=== PATIENT | female | born 1945 | race Caucasian/White ===

== ENCOUNTER → 2018-05-09 09:56 | Outpatient (CLI) | payer MEDICARE, OTHER, SELFPAY ==
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
--- NOTE | 2018-05-09 10:00 | MM_ITS ---
MM Dig screening mamm BI w/CAD ORDERING PHYSICIAN : Jakob Barrios MD PATIENT AGE: 72 years GENDER: Female COMPARISON: Baseline study. No previous mammogram. INDICATION: Routine: SCREENING baseline mammogram. No hormones. No new complaints. Family history. Mother with breast cancer age 93. TECHNIQUE: Standard CC and MLO images were obtained. R2 CAD reviewed. FINDINGS: Lower density breast with moderate generalized fatty replacement. Minimal residual fibroglandular elements most evident at the immediate retroareolar region. No prior studies available for comparison. No dominant or suspicious mass. No suspicious calcifications.. Minor parenchymal elements at the retroareolar region but no focal area of concern. I would recommended encourage follow-up in one year to confirm established stable baseline character. RIGHT BREAST: LEFT BREAST:No suspicious areas of concern.. Follow-up in one year adequate. There are some a few small low-density oil cysts. Low-density centrally within these support such. These are more evident on the left than right.. Can be followed. IMPRESSION: 1. Baseline mammogram with no previous for comparison No suspicious areas. Slightly nodular character of the fibroglandular pattern but no areas of significant concern Would recommend encourage Bilateral follow-up in one year to confirm stable baseline character . BI-RADS Category: 2 Benign Finding(s) RECOMMENDED FOLLOW-UP: 1YR 1 YEAR FOLLOW-UP (A letter has been sent to the patient regarding results of the study.)
== END ==
PROVIDERS: PCP Internal Medicine Adolescent Medicine; Visit Provider Internal Medicine Adolescent Medicine
DX: Z12.31 Encounter for screening mammogram for malignant neoplasm of breast (principal); Z13.820 Encounter for screening for osteoporosis; Z78.0 Asymptomatic menopausal state
CPT/HCPCS: 77067; 77080

== ENCOUNTER → 2019-07-28 15:58 | Outpatient (CLI) | payer MEDICARE, OTHER, SELFPAY ==
[2019-07-28 16:43] LABS: Basophils # 0.1 K/mm3 (0-0.2); Basophils % 1.3 % (0.1-2.0); Eosinophils # 0.5 K/mm3 (0.0-0.4); Eosinophils % 7.3 % (0.1-12.0); Hemoglobin 15.4 g/dL (12.2-16.2); Lymphocytes # 2.4 K/mm3 (0.7-4.5); Lymphocytes % 32.7 % (10-50); Mean Corpuscular HGB Conc 34.9 g/dL (31.8-35.4); Mean Corpuscular Hemoglobin 31.4 pg (27.0-31.2); Mean Platelet Volume 7.7 fl (7.4-10.4); Monocytes # 0.3 K/mm3 (0.1-1.0); Monocytes % 4.6 % (1.7-9.3); Neutrophils # 3.9 K/mm3 (1.8-7.8); Neutrophils % 54.1 % (37.0-80.0); Platelet Count 196 K/mm3 (142-424); Red Blood Count 4.89 M/mm3 (4.20-5.40); Red Cell Distribution Width 13.7 % (11.5-17.5); White Blood Count 7.2 K/mm3 (4.8-10.8)
[2019-07-28 17:06] LABS: Chloride 105 mmol/L (98-107); Potassium 4.3 mmoL/L (3.5-5.1); Sodium 141 mmol/L (136-145)
[2019-07-28 17:08] LABS: Alanine Aminotransferase 11 U/L (12-78); Aspartate Amino Transferase 22 U/L (14-36); Blood Urea Nitrogen 12 mg/dl (7-17); Estimated Glomerular Filt Rate 70 ml/min (>60); GFR (African American) 85 ML/MIN (>60)
[2019-07-28 17:09] LABS: Albumin Level 4.3 g/dl (3.5-5.0); Albumin/Globulin Ratio 1.4 (1.1-1.8); Alkaline Phosphatase 92 U/L (38-126); Anion Gap 9.3 mEq/L (5-15); Bilirubin,Total 0.8 mg/dl (0.2-1.3); Carbon Dioxide 31 mmol/L (22.0-30.0); Chol/HDL Ratio 3.2 (1-3.5); Cholesterol 184 mg/dl (140-200); Glucose 87 mg/dl (74-100); HDL Cholesterol 57 mg/dl (40-60); Total Protein,Serum 7.3 g/dl (6.3-8.2); Triglycerides 186 mg/dl (30-150); VLDL Cholesterol 37 mg/dL (0-40)
[2019-07-28 17:20] LABS: Direct LDL Cholesterol 101.57 mg/dL (100-129)
[2019-07-28 17:39] LABS: Thyroid Stimulating Hormone 0.44 uIU/mL (0.465-4.68)
== END ==
PROVIDERS: PCP Internal Medicine Adolescent Medicine; Visit Provider Nurse Practitioner Family
DX: Z00.00 Encounter for general adult medical examination without abnormal findings (principal); R00.2 Palpitations; R42 Dizziness and giddiness; E78.5 Hyperlipidemia, unspecified
CPT/HCPCS: 36415; 80053; 80061; 84443; 85025; 93270

== ENCOUNTER → 2019-08-16 08:38 | Outpatient (CLI) | payer MEDICARE, OTHER, SELFPAY ==
--- NOTE | 2019-08-16 | CA_ITS ---
APPROVED REPORT EXAM: Comprehensive 2D, Doppler, and color-flow Echocardiogram Moving Worker: Yoli Cordova CRT Ht: 5 ft 2 in Wt: 132lbs BSA: 1.60 BP: 140/76 mmHg Indications: PALPITATIONS, SOB, HLD 2D Dimensions LVOT 1.90 cm (M/F) 1.5-2.5 M-Mode Dimensions RVDd 2.50 cm (0.9-2.6) LVDd 4.43 cm (3.5-5.7) LVDs 3.25 cm (3.5-5.7) IVSd 1.36 cm (0.6-1.1) PWd 0.86 cm (0.6-1.1) EF (Teich) 52.30% FS 26.60% EDV (Teich) 89.10 mL ESV (Teich) 42.50 mL LV Diastology E/A Ratio 0.65 Mitral Valve MV A Velocity 89.00 (40-130 cm/s) Left Ventricle Left atrium is mildly enlarged, left ventricle is normal size, visually estimated ejection fraction 55% with no regional wall motion abnormality, endocardial surfaces are poorly visualized. Grade 1 diastolic dysfunction seen without tissue Doppler evidence of raise left atrial pressure. Right Ventricle Right atrium and right ventricular normal size and contractility. Aortic Valve Aortic valve is thickened and calcified leaflet chordae display good mobility, there is no aortic stenosis, there is mild aortic insufficiency. Mitral Valve Mitral valve is minimally thickened, there is mild mitral regurgitation. Tricuspid Valve Tricuspid valve is grossly normal, there is mild tricuspid regurgitation, tricuspid regurgitation jet velocity is inadequate for calculation of the right ventricular systolic pressure. Pulmonic Valve Pulmonic valve is poorly visualized. Great Vessels Aortic root is normal size. Pericardium No significant pericardial effusion noted. Conclusion 1. Mildly enlarged left atrium, normal left ventricular size, there is no concentric left ventricular hypertrophy, visually estimated ejection fraction 55% with no regional wall motion abnormality, grade 1 diastolic dysfunction seen without tissue Doppler evidence of raise left atrial pressure. 2. Mild aortic, mild mitral and tricuspid regurgitation. 3. No significant pericardial effusion noted. Electronically signed by : Alonso Marie, 08/17/2019 13:32:17
== END ==
PROVIDERS: PCP Internal Medicine Adolescent Medicine; Visit Provider Nurse Practitioner Family
DX: I47.1 Supraventricular tachycardia (principal)
CPT/HCPCS: 93306

== ENCOUNTER → 2019-08-22 10:52 | Outpatient (CLI) | payer MEDICARE, OTHER, SELFPAY ==
[2019-08-22 14:14] LABS: Thyroid Stimulating Hormone 1.58 uIU/mL (0.465-4.68)
== END ==
PROVIDERS: PCP Nurse Practitioner Family; Visit Provider Internal Medicine Adolescent Medicine
DX: R00.2 Palpitations (principal)
CPT/HCPCS: 36415; 84443

== ENCOUNTER → 2020-02-19 13:37 | Outpatient (CLI) | payer MEDICARE, OTHER, SELFPAY ==
--- NOTE | 2020-02-19 13:49 | XR_ITS ---
PROCEDURE: XR CHEST PORTABLE CLINICAL HISTORY: COVID OUTPATIENT COMPARISON: CR CXR CHEST(2 VIEWS-NOT PORTABLE) from 04/06/[address] [facility] [address] CHEST W/O CONTRAST from 04/07/2013 CR CXR CHEST(2 VIEWS-NOT PORTABLE) from 06/26/2014 CR CXR CHEST(2 VIEWS-NOT PORTABLE) from 01/22/2016 FINDINGS: The cardiomediastinal silhouette and pulmonary vascularity are within normal limits tortuosity. The lung bass are fairly well expanded and appear clear of infiltrate. There is no pleural fluid. There are calcified right hilar nodes. IMPRESSION: No acute findings. Dictated by: Dr. Yonny Fernandes MD 02/19/2020 14:22 Dr. Yonny Fernandes MD in [place] 02/19/2020 14:22
[2020-02-19 15:25] LABS: Adenovirus,PCR Not Detected (NotDetected); Bordetella Pertussis Not Detected (NotDetected); Chlamydophila Pneumoniae, PCR Not Detected (NotDetected); Coronavirus 19, PCR Not Detected (NotDetected); Coronavirus 229E Not Detected (NotDetected); Coronavirus NL63 Not Detected (NotDetected); Coronavirus OC43 Not Detected (NotDetected); Coronovirus HKU1,PCR Not Detected (NotDetected); Human Metapneumovirus Not Detected (NotDetected); Influenza A, PCR Not Detected (NotDetected); Influenza AH1, 2009 Not Detected (NotDetected); Influenza AH1, PCR Not Detected (NotDetected); Influenza AH3,PCR Not Detected (NotDetected); Influenza B, PCR Not Detected (NotDetected); Mycoplasma Pneumoniae, PCR Not Detected (NotDetected); Parainfluenza 1, PCR Not Detected (NotDetected); Parainfluenza 2, PCR Not Detected (NotDetected); Parainfluenza 3, PCR Not Detected (NotDetected); Parainfluenza 4, PCR Not Detected (NotDetected); Respiratory Syncytial Virus Not Detected (NotDetected); Rhinovirus/Enterovirus Not Detected (NotDetected)
== END ==
PROVIDERS: PCP Internal Medicine Adolescent Medicine; Visit Provider Internal Medicine Adolescent Medicine
DX: Z03.818 Encounter for observation for suspected exposure to other biological agents ruled out (principal); R05 Cough
CPT/HCPCS: 71045; 87581; 87633; 87798

== ENCOUNTER → 2020-07-16 09:40 | Outpatient (POV) | payer MEDICARE, OTHER, SELFPAY | PROVIDERS: Visit Provider Dermatology | DX: Z00.00 Encounter for general adult medical examination without abnormal findings (principal) ==

== ENCOUNTER → 2021-08-12 10:47 | Outpatient (CLI) | payer MEDICARE, OTHER, SELFPAY ==
--- NOTE | 2021-08-12 10:48 | CA_ITS ---
APPROVED REPORT EXAM: Comprehensive 2D, Doppler, and color-flow Echocardiogram Hotel Manager: Liliam Jimenez RVT Ht: 5 ft 2 in Wt: 124lbs BSA: 1.56 BP: 148/82 mmHg Indications: SYNCOPE,BRADYCARDIA,SOA,EX SMOKER,HLD 2D Dimensions LVOT 1.99 cm (M/F) 1.5-2.5 LA Volume 23.80 mL LA Volume Index 15.25 mL/m2 (M/F) 16-34 M-Mode Dimensions RVDd 2.75 cm (0.9-2.6) LA Diam 3.38 cm (1.9-4.0) LVDd 5.40 cm (3.5-5.7) Ao Diam 3.31 cm (2.0-3.7) LVDs 3.47 cm (3.5-5.7) IVSd 0.29 cm (0.6-1.1) PWd 0.64 cm (0.6-1.1) EF (Teich) 64.80% FS 35.70% EDV (Teich) 141.30 mL TAPSE 2.17 (<1.7) ESV (Teich) 49.80 mL LV Diastology E Decel Time 290.00 (160-240 msec) E/A Ratio 0.7 MED E' 8.00 (< 7 cm/sec) E'/MED E' Ratio 6.20 (>14) LAT E' 15.30 (<10 cm/sec) E/LAT E' Ratio 3.24 (>14) Aortic Valve AI PHT 1565.00 ms AO Peak GR. 5.50 mmHg Mitral Valve MV E Max Bam. 50.00 (40-130 cm/s) MV A Velocity 68.00 (40-130 cm/s) E/A Ratio 0.73 MV Decel. Time 290.00 (160-240 ms) MV PHT 85.00 ms Pulmonary Valve PV Peak Velocity 50.00 (50-150 cm/s) Tricuspid Valve TR P. Velocity 281.00 cm/s RAP Estimate 10.00 mmHg RVSP 41.50 mmHg Left Ventricle Left atrium is mildly enlarged, left ventricle is normal size, mild concentric left ventricular hypertrophy, estimated ejection fraction 55% with no regional wall motion abnormality, grade 1 diastolic dysfunction seen without tissue Doppler evidence of raise left atrial pressure. Right Ventricle Right atrium and right ventricle are mildly enlarged with normal contractility. Aortic Valve Aortic valve is minimally thickened and calcified with mild aortic insufficiency, there is no aortic stenosis. Mitral Valve Mitral valve grossly normal, there is mild mitral regurgitation. Tricuspid Valve Tricuspid grossly normal, there is mild tricuspid regurgitation, calculated right ventricular systolic pressure 39 mmHg. Pulmonic Valve Pulmonic valve is poorly visualized. Great Vessels Aortic root is normal size. Inferior vena cava is mildly dilated with normal inspiratory collapse. Pericardium No significant pericardial effusion noted. Conclusion 1. Mild biatrial enlargement, normal left ventricular size, mild concentric left ventricular hypertrophy, estimated ejection fraction 55% with no regional wall motion abnormality, grade 1 diastolic dysfunction seen without tissue Doppler evidence of raise left atrial pressure. 2. Mildly enlarged right ventricle with normal contractility. 3. Mild aortic, mild mitral and tricuspid regurgitation, calculated right ventricular systolic pressure 39 mmHg. 4. Inferior vena cava is mildly dilated with normal inspiratory collapse. 5. No significant pericardial effusion noted. Electronically signed by : Alonso Marie MD 08/12/2021 19:47:36
[2021-08-12 12:09] LABS: Basophils # 0.1 K/mm3 (0-0.2); Basophils % 2.5 % (0.1-2.0); Eosinophils # 0.2 K/mm3 (0.0-0.4); Eosinophils % 4.2 % (0.1-12.0); Hematocrit 45.1 % (37.0-47.0); Hemoglobin 14.9 g/dL (12.2-16.2); Lymphocytes # 1.7 K/mm3 (0.7-4.5); Mean Corpuscular Hemoglobin 30.9 pg (27.0-31.2); Mean Corpuscular Volume 93.7 fl (81-99); Monocytes # 0.3 K/mm3 (0.1-1.0); Monocytes % 5.2 % (1.7-9.3); Neutrophils # 2.8 K/mm3 (1.8-7.8); Neutrophils % 54.1 % (37.0-80.0); Platelet Count 198 K/mm3 (142-424); Red Blood Count 4.81 M/mm3 (4.20-5.40); Red Cell Distribution Width 12.6 % (11.5-17.5); White Blood Count 5.1 K/mm3 (4.8-10.8)
[2021-08-12 12:29] LABS: Alanine Aminotransferase 18 U/L (12-78); Albumin Level 4.1 g/dl (3.5-5.0); Albumin/Globulin Ratio 1.8 (1.1-1.8); Alkaline Phosphatase 62 U/L (38-126); Aspartate Amino Transferase 21 U/L (14-36); Bilirubin,Total 0.4 mg/dl (0.2-1.3); Blood Urea Nitrogen 14 mg/dl (7-17); Calcium 9.8 mg/dl (8.4-10.2); Carbon Dioxide 32 mmol/L (22.0-30.0); Chloride 103 mmol/L (98-107); Estimated Glomerular Filt Rate 70 ml/min (>60); GFR (African American) 85 ML/MIN (>60); Globulin 2.3 g/dL (1.3-3.2); Glucose 97 mg/dl (74-100); Magnesium 1.9 mg/dl (1.6-2.3); Sodium 139 mmol/L (136-145); Total Protein,Serum 6.4 g/dl (6.3-8.2)
[2021-08-12 12:34] LABS: Digoxin < 0.40 ng/ml (0.2-2.00)
== END ==
PROVIDERS: PCP Internal Medicine Adolescent Medicine; Visit Provider Internal Medicine Adolescent Medicine
DX: R55 Syncope and collapse (principal)
CPT/HCPCS: 36415; 80053; 80162; 83735; 85025; 93306

== ENCOUNTER → 2021-08-21 13:33 | Outpatient (CLI) | payer MEDICARE, OTHER, SELFPAY | PROVIDERS: PCP Internal Medicine Adolescent Medicine; Visit Provider Internal Medicine Adolescent Medicine | DX: R55 Syncope and collapse (principal) | CPT/HCPCS: 93270 ==

== ENCOUNTER 2021-11-16 18:49 | Emergency (ER) | payer MEDICARE, OTHER, SELFPAY ==
[2021-11-16 18:50] VITALS: BP 142/75; PULSE 83; RESP 16; TEMP 36.6; O2SAT 98; BMI 21.5
--- NOTE | 2021-11-16 18:53 | ECG_ITS ---
APPROVED REPORT Exam: Resting ECG HR:84 bpm ECG Measurements Heart Rate 84 AXES UT 206 P 57 QRSd 85 QRS 53 QT 381 T 62 QTc 422 Conclusion SINUS RHYTHM NORMAL ECG UNCONFIRMED REPORT Electronically signed by : Jakob Barrios MD 11/20/2021 16:03:11
--- NOTE | 2021-11-16 19:55 | HMH.EDGENADL ---
Discharge Plan Disposition Patient Disposition: Home, Self-Care Condition: Good Prescriptions Prescriptions: New bisoprolol fumarate 10 mg tablet 10 mg PO DAILY Qty: 14 0RF No Action digoxin 125 mcg (0.125 mg) tablet 125 mcg PO DAILY simvastatin 40 mg tablet 40 mg PO DAILY Advair HFA 115-21 mcg/actuation HFA aerosol inhaler 1 puff IH ONCE aspirin [Adult Low Dose Aspirin] 81 mg tablet,delayed release (DR/EC) 81 mg PO DAILY fluticasone propionate [Flonase Allergy Relief] 50 mcg/actuation spray,suspension 1 spray NS DAILY Rx Instructions: administer into each nostril omeprazole 20 mg capsule,delayed release(DR/EC) 20 mg PO DAILY Label Comments: 1/2 tab daily fexofenadine [Allergy Relief (fexofenadine)] 180 mg tablet 180 mg PO DAILY cholecalciferol (vitamin D3) 25 mcg (1,000 unit) capsule 25 mcg PO DAILY coenzyme Q10 [CoQ-10] 100 mg capsule 100 mg PO DAILY calcium carbonate [Calcium 500] 500 mg calcium (1,250 mg) tablet,chewable 500 mg PO DAILY Referrals Follow up/Referrals: Jakob Barrios MD [Primary Care Provider] - See instructions Nando Solo MD [Staff Physician] - See instructions Activity Restrictions/Add. Instructions Additional Instructions/Restrictions: Bisoprolol as prescribed, start tomorrow. Follow-up with cardiology, call tomorrow to make appointment to be seen this week. You may see Dr. Sigala, or Dr. Solo if you prefer. Return to the emergency room if prolonged palpitations/rapid heartbeat returns. Clinical Impressions Clinical Impression: Atrial fibrillation Discharge ED Provider: Osito Coombs Adult [facility] General Chief complaint: Arrhythmia/Palpitations Stated complaint: palpitations Time Seen by Provider: 11/16/21 19:44 Mode of Arrival: EMS Source of Information: Patient Limitations: No Limitations Description of Symptoms (Recalled from ER Triage Doc. by RN): to ed per squad pt a transfer from [facility] hosp reports pt came to ed for rapid heart rate. pt had a cardiac cath 9 days ago at [facility]. pt was given adenosine with no relief of symptoms. pt was then given 5mg metroprolol after meds HR was 60-80 NSR. pt admits to [facility] with no c/o at present History of Present Illness HPI narrative: The patient is brought by ambulance from [facility] emergency department. She presented there with a cardiac arrhythmia. She says that she has been having palpitations for 2 hours. It was thought initially that she was in SVT and was given adenosine. She had temporary improvement but then heart rates again increased to the 180 range and she became hypotensive. She has recently seen a obstetrician and gynaecologist at [facility] and had a recent heart cath. That cardiology was was contacted and recommended a Cardizem drip, but could not accept the patient for transfer because of lack of beds. The emergency physician then contacted Dr. Solo who recommended a dose of metoprolol. Dr. Solo felt the patient was in atrial fibrillation and not SVT. Following this the patient converted to normal sinus rhythm. She was stable after conversion with temple of normal blood pressure, but the emergency physician felt she should be transferred here for observation. Dr. Bloom, internal medicine on-call, did not want to make the patient a direct admission, wanted her evaluated in the emergency department. She now feels back to normal and would like to be discharged home. The patient has had palpitations for a long time that usually just last a few minutes and resolved with carotid massage. A couple of days ago she had an episode that lasted 2 hours. She had a stress test recently that apparently was of some concern and was sent to [facility] to have a heart cath. She had a heart cath 9 days ago and the heart cath was normal. It was recommended that she have an ablation. She is going to meet with her
[2021-11-16 20:12] VITALS: BP 129/75; PULSE 65; RESP 18; TEMP 36.6; O2SAT 98
== END 2021-11-16 20:35 | disposition home or self-care (01) ==
PROVIDERS: Emergency Provider Emergency Medicine; PCP Internal Medicine Adolescent Medicine
DX: I48.91 Unspecified atrial fibrillation (principal); E78.5 Hyperlipidemia, unspecified; K21.9 Gastro-esophageal reflux disease without esophagitis; I49.9 Cardiac arrhythmia, unspecified
CPT/HCPCS: 93005; 99283

== ENCOUNTER → 2022-02-20 14:00 | Outpatient (CLI) | payer MEDICARE, OTHER, SELFPAY ==
[2022-02-20 18:25] LABS: Basophils # 0.1 K/mm3 (0-0.2); Basophils % 1.4 % (0.1-2.0); Eosinophils # 0.1 K/mm3 (0.0-0.4); Eosinophils % 2.1 % (0.1-12.0); Hematocrit 44.9 % (37.0-47.0); Hemoglobin 15.1 g/dL (12.2-16.2); Lymphocytes % 31.8 % (10-50); Mean Corpuscular HGB Conc 33.6 g/dL (31.8-35.4); Mean Corpuscular Hemoglobin 30.3 pg (27.0-31.2); Mean Corpuscular Volume 90.3 fl (81-99); Mean Platelet Volume 8.5 fl (7.4-10.4); Monocytes # 0.3 K/mm3 (0.1-1.0); Monocytes % 5.3 % (1.7-9.3); Neutrophils # 3.7 K/mm3 (1.8-7.8); Neutrophils % 59.4 % (37.0-80.0); Platelet Count 226 K/mm3 (142-424); Red Blood Count 4.97 M/mm3 (4.20-5.40); Red Cell Distribution Width 12.8 % (11.5-17.5); White Blood Count 6.2 K/mm3 (4.8-10.8)
[2022-02-20 18:32] LABS: Anion Gap 13.5 mEq/L (5-15); Blood Urea Nitrogen 14 mg/dl (7-17); Calcium 9.2 mg/dl (8.4-10.2); Carbon Dioxide 29 mmol/L (22.0-30.0); Chloride 102 mmol/L (98-107); Estimated Glomerular Filt Rate 61 ml/min (>60); GFR (African American) 74 ML/MIN (>60); Glucose 89 mg/dl (74-100); Potassium 4.5 mmoL/L (3.5-5.1); Sodium 140 mmol/L (136-145)
== END ==
PROVIDERS: PCP Nurse Practitioner Family; Visit Provider Nurse Practitioner Family
DX: I48.91 Unspecified atrial fibrillation (principal); Z51.81 Encounter for therapeutic drug level monitoring; Z79.01 Long term (current) use of anticoagulants
CPT/HCPCS: 80048; 85025

== ENCOUNTER 2023-06-22 11:48 | Outpatient (CLI) | payer MEDICARE, OTHER, SELFPAY ==
[2023-06-22 12:12] LABS: Basophils # 0.1 K/mm3 (0-0.2); Basophils % 1.5 % (0.1-2.0); Eosinophils # 0.2 K/mm3 (0.0-0.4); Eosinophils % 4.1 % (0.1-12.0); Hematocrit 46.1 % (37.0-47.0); Hemoglobin 14.8 g/dL (12.2-16.2); Lymphocytes # 1.9 K/mm3 (0.7-4.5); Lymphocytes % 36.9 % (10-50); Mean Corpuscular Hemoglobin 29.9 pg (27.0-31.2); Mean Corpuscular Volume 93.4 fl (81-99); Mean Platelet Volume 8.3 fl (7.4-10.4); Monocytes # 0.3 K/mm3 (0.1-1.0); Monocytes % 5.3 % (1.7-9.3); Neutrophils # 2.7 K/mm3 (1.8-7.8); Neutrophils % 52.3 % (37.0-80.0); Platelet Count 195 K/mm3 (142-424); Red Blood Count 4.94 M/mm3 (4.20-5.40); Red Cell Distribution Width 13.5 % (11.5-17.5); White Blood Count 5.2 K/mm3 (4.8-10.8)
[2023-06-22 12:22] LABS: Activated Partial Thrombo Time 31.6 seconds (22.8-30.6); Prothrombin Time 11.8 seconds (10.1-12.5)
[2023-06-22 13:02] LABS: Alanine Aminotransferase 22 U/L (12-78); Albumin Level 4.6 g/dl (3.5-5.0); Albumin/Globulin Ratio 2.2 (1.1-1.8); Alkaline Phosphatase 74 U/L (38-126); Anion Gap 9.5 mEq/L (5-15); Aspartate Amino Transferase 28 U/L (14-36); Bilirubin,Total 0.9 mg/dl (0.2-1.3); Blood Urea Nitrogen 13 mg/dl (7-17); Calcium 10.1 mg/dl (8.4-10.2); Carbon Dioxide 29 mmol/L (22.0-30.0); Chloride 105 mmol/L (98-107); Chol/HDL Ratio 2.8 (1-3.5); Cholesterol 212 mg/dl (140-200); Estimated Glomerular Filt Rate 61 ml/min (>60); GFR (African American) 74 ML/MIN (>60); Globulin 2.1 g/dL (1.3-3.2); Glucose 90 mg/dl (74-100); HDL Cholesterol 76 mg/dl (40-60); Potassium 4.5 mmoL/L (3.5-5.1); Sodium 139 mmol/L (136-145); Total Protein,Serum 6.7 g/dl (6.3-8.2); Triglycerides 183 mg/dl (30-150); VLDL Cholesterol 37 mg/dL (0-40)
[2023-06-22 13:13] LABS: Direct LDL Cholesterol 98.85 mg/dL (100-129)
== END 2023-06-22 23:59 | disposition home or self-care (01) ==
LOC: LAB 11:53
PROVIDERS: PCP Internal Medicine Adolescent Medicine; Visit Provider Emergency Medicine
DX: Z51.81 Encounter for therapeutic drug level monitoring; Z79.01 Long term (current) use of anticoagulants; E78.00 Pure hypercholesterolemia, unspecified
CPT/HCPCS: 36415; 80053; 80061; 85025; 85610; 85730

== ENCOUNTER 2024-01-15 02:31 | Emergency (ER) | payer MEDICARE, OTHER, SELFPAY ==
[2024-01-15 02:33] VITALS: BP 117/97; PULSE 70; RESP 18; TEMP 36.6; O2SAT 96; BMI 23.8
[2024-01-15 03:01] VITALS: BP 181/96; PULSE 60; O2SAT 97
--- NOTE | 2024-01-15 03:06 | XR_ITS ---
PROCEDURE INFORMATION: Exam: XR Left Wrist Exam date and time: 01/15/2024 3:21 AM Age: 78 years old Clinical indication: Injury or trauma; Fall; Blunt trauma (contusions or hematomas); Wrist; Left; Additional info: Pain swelling ttp L 1st metacarpal/wrist TECHNIQUE: Imaging protocol: Radiologic exam of the left wrist. Views: 3 or more views. COMPARISON: CR XR FOREARM LT 2V 01/15/2024 3:21 AM FINDINGS: Bones/joints: Osteoarthritic changes at the 1st carpometacarpal joint. Soft tissues: Normal. IMPRESSION: Osteoarthritic changes at the 1st carpometacarpal joint.
--- NOTE | 2024-01-15 03:06 | XR_ITS ---
PROCEDURE INFORMATION: Exam: XR Left Hand Exam date and time: 01/15/2024 3:21 AM Age: 78 years old Clinical indication: Injury or trauma; Fall; Blunt trauma (contusions or hematomas); Wrist; Left; Additional info: Pain swelling ttp L 1st metacarpal/wrist TECHNIQUE: Imaging protocol: Radiologic exam of the left hand. Views: 3 or more views. COMPARISON: CR XR HAND LT MIN 3V 01/15/2024 3:21 AM FINDINGS: Bones/joints: Osteoarthritic changes are seen at the 1st carpometacarpal joint. No fracture lesion or malalignment otherwise identified. Soft tissues: Normal. IMPRESSION: Osteoarthritic changes are seen at the 1st carpometacarpal joint. No fracture lesion or malalignment otherwise identified.
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
--- NOTE | 2024-01-15 03:06 | XR_ITS ---
PROCEDURE INFORMATION: Exam: XR Left Forearm Exam date and time: 01/15/2024 3:21 AM Age: 78 years old Clinical indication: Injury or trauma; Fall; Blunt trauma (contusions or hematomas); Wrist; Left; Additional info: Pain swelling ttp L 1st metacarpal/wrist TECHNIQUE: Imaging protocol: Radiologic exam of the left forearm. Views: 2 views. COMPARISON: CR XR FOREARM LT 2V 01/15/2024 3:21 AM FINDINGS: Bones/joints: Normal. Soft tissues: Normal. IMPRESSION: No acute findings.
[2024-01-15] MEDS: OXYCODONE 5MG IMMEDIATE RELEASE TABLET 2.5 MG PO ×2 (03:10→04:36)
[2024-01-15 03:15] VITALS: BP 170/88; PULSE 58; O2SAT 97
--- NOTE | 2024-01-15 03:15 | [facility].EDGENADL ---
Discharge Plan Disposition Patient Disposition: Home, Self-Care Condition: Good Prescriptions Prescriptions: No Action fluticasone propionate [Flonase Allergy Relief] 50 mcg/actuation spray,suspension 1 spray NS DAILY Rx Instructions: administer into each nostril fexofenadine [Allergy Relief (fexofenadine)] 180 mg tablet 180 mg PO DAILY cholecalciferol (vitamin D3) 25 mcg (1,000 unit) capsule 25 mcg PO DAILY coenzyme Q10 [CoQ-10] 100 mg capsule 100 mg PO DAILY calcium carbonate [Calcium 500] 500 mg calcium (1,250 mg) tablet,chewable 500 mg PO DAILY Xarelto 20 mg tablet 20 mg PO DAILY Qty: 30 5RF Rx Instructions: must administer with evening meal Eliquis 5 mg tablet 5 mg PO BID Patient Comments: TAKE 1 TABLET BY MOUTH TWICE DAILY albuterol sulfate 90 mcg/actuation HFA aerosol inhaler 2 inh inhalation Q4H PRN (Reason: shortness of breath or wheezing) Qty: 6.7 2RF benzonatate 100 mg capsule 100 mg PO TID PRN (Reason: cough) Qty: 30 2RF triamcinolone acetonide 0.025 % cream 1 applic topical BID Qty: 15 0RF Trelegy Ellipta 100-62.5-25 mcg blister with device 1 inh inhalation DAILY Qty: 60 2RF Referrals Follow up/Referrals: Justyn Romero DO [Staff Physician] - See instructions (David REDDING thumb/wrist pain, no fx in ER, likely need repeat XR, in removable thumb spica) Ike Fisher MD [Primary Care Provider] - See instructions Activity Restrictions/Add. Instructions Additional Instructions/Restrictions: You were evaluated in the ER and are appropriate for discharge at this time. Continue taking your home medications as prescribed. Wear the splint as directed until follow-up. You can take it off to shower/bathe. Make an appointment with your primary care doctor for reevaluation in a few days to recheck your blood pressure. Call Dr. Romero's office for orthopedic follow-up, they will likely want to repeat x-rays. Return to the ER with new, worsening, or otherwise concerning symptoms including but not limited to worsening pain, worsening swelling, numbness or tingling. Clinical Impressions Clinical Impression: Fall, Acute pain of left wrist Print Language Print Language: [place]al[place] Discharge ED Provider: Yadira Potter General Adult HPI General Chief complaint: Extremity Injury, Upper Stated complaint: fall, L wrist pain, can't move it Time Seen by Provider: 01/15/24 02:41 Mode of Arrival: Ambulatory Source of Information: Patient Limitations: No Limitations Description of Symptoms (Recalled from ER Triage Doc. by RN): Patient fell over a box around 11pm and hurt her left wrist. She is having pain and swelling. On eliquis. History of Present Illness HPI narrative: 78-year-old female with A-fib on blood thinners presents to the ER after fall. Patient reports she tripped and fell over a box around 11 PM. She states she tried to catch herself on a small wall in front of the box with her left hand. She immediately developed a blood blister and points to the base of the thenar eminence. She states she applied ice but continued having swelling and pain. She states she decided to come to the ER when she was no longer able to move her thumb. Patient does report she bumped the right side of her head but did not lose consciousness, no neck pain, no numbness, tingling, or weakness. She reports no other complaints or concerns. She states she is having difficulty moving the left thumb as well as the left wrist and has obvious swelling and bruising on arrival. Related Data Home Medications ?Medication ?Instructions ?Recorded ?Confirmed calcium carbonate (Calcium 500) 500 mg PO DAILY 08/07/21 09/02/23 cholecalciferol (vitamin D3) 25 25 mcg PO DAILY 08/07/21 09/02/23 mcg (1,000 unit) capsule coenzyme Q10 100 mg capsule 100 mg PO DAILY 08/07/21 09/02/23 (CoQ-10) fexofenadine 180 mg tablet 180 mg PO DAILY 08/07/21 09/02/23 (Allergy Relief (fexofenadine)) fluticasone propionate 50 1 spray intranasal DAILY 08/07/21 09/02/23 mcg/actuation nasal spray,suspension (Flonase Allergy Relief) apixaban 5 mg tablet (Eliquis) 5 mg PO BID 09/02/23 09/02/23 Previous Rx's ?Medication ?Instructions ?Recorded rivaroxaban 20 mg tablet (Xarelto) 20 mg PO DAILY #30 tabs 11/17/21 triamcinolone acetonide 0.025 % 1 applic topical BID #15 grams 04/26/23 topical cream albuterol sulfate 90 mcg/actuation 2 inh inhalation Q4H PRN shortness 09/02/23 aerosol inhaler of breath or wheezing #6.7 grams benzonatate 100 mg capsule 100 mg PO TID PRN cough #30 caps 09/02/23 fluticasone fur. 100 mcg-umeclid 1 inh inhalation DAILY #60 ea 09/13/23 62.5 mcg-vilant 25 mcg inhalat.powder (Trelegy Ellipta) Allergies Allergy/AdvReac Type Severity Reaction Status Date / Time Sulfa (Sulfonamide Allergy Unknown Verified 09/02/23 15:10 Antibiotics) [facility] Disclaimer: The information contained in this section may have been updated after the patient was seen, as this information can be updated by other users. Medical History Sinus bradycardia Allergic rhinitis Surgical History H/O cardiac radiofrequency ablation Social History Smoking Status: Never smoker alcohol intake: never substance use type: denies use current occupational status: retired Other Medical History Have you received the Pneumonia Vaccine: Yes ROS Obtained: Yes Systems reviewed as appropriate & no additional complaints except as documented ROS per HPI Physical Exam General General appearance: alert and in no apparent distress Head Head exam: atraumatic and normocephalic Eye Eye exam: Present PERRL and EOMI ENT ENT exam: Present mucous membranes moist Neck Neck exam: Present normal inspection and full ROM Chest Chest inspection: Present symmetric chest wall rise Respiratory Respiratory exam: Absent respiratory distress or stridor Cardiovascular Cardiovascular exam: Present regular rate and normal rhythm Extremities Exam Extremities exam: Present tenderness (Tenderness to palpation the anterior left wrist, thenar eminence, left first metacarpal with obvious bruising and swelling present), joint swelling and other (Neurovascularly intact throughout); Absent full ROM (Limited range of motion of the left wrist, extension intact but limited flexion, patient also has pain with opposition of the left thumb though she is able to fully oppose it, normal range of motion of the elbow) Neurological Exam Neurological exam: Present alert and oriented X3; Absent motor sensory deficit Psychiatric Psychiatric exam: Present normal affect and normal mood Skin Skin exam: Present warm and dry Medical Decision Making Medical Records Medical records reviewed: Yes I reviewed the patient's medical records. Screening: Per USPSTF and CDC recommendations, given the prevalence of disease in our region, it is our hospital?s policy to screen for HIV and viral Hepatitis for all patients aged 18 and over and those with ongoing risk factors. MR Comment: Most recent family medicine note was reviewed demonstrating patient presented for breathing issues. History of asthma and COPD. After evaluation in the ER, plan was to treat asthma/COPD with Trelegy and albuterol as well as Tessalon Perles for cough. Laurent Inquiry Pt receiving controlled substance: No Vital Signs: 01/15/24 02:33 01/15/24 03:01 01/15/24 03:15 Temperature 97.9 F Temperature Source Oral Pulse Rate 60 58 L Pulse Rate [Right Radial] 70 Respiratory Rate 18 Blood Pressure 181/96 H 170/88 H Blood Pressure [Right Arm] 117/97 H Blood Pressure Mean Blood Pressure Mean [Right Arm] 103 Blood Pressure Source [Right Arm] Automatic Cuff Blood Pressure Position [Right Arm] Supine 02 Sat by Pulse Oximetry 96 97 97 Oxygen Delivery Method Room Air 01/15/24 03:35 Temperature Temperature Source Pulse Rate 58 L Pulse Rate [Right Radial] Respiratory Rate Blood Pressure 180/96 H Blood Pressure [Right Arm] Blood Pressure Mean 135 Blood Pressure Mean [Right Arm] Blood Pressure Source [Right Arm] Blood Pressure Position [Right Arm] 02 Sat by Pulse Oximetry Oxygen Delivery Method Orders (Tests/Meds): ED MEDICATIONS Generic Name Dose Route Start Last Admin Trade Name Freq PRN Reason Stop Dose Admin Oxycodone HCl 2.5 mg 01/15/24 04:27 Oxycodone 5mg Immediate Release Tablet PO 01/15/24 04:28 ONCE ONE Discontinued Medications Generic Name Dose Route Start Last Admin Trade Name Freq PRN Reason Stop Dose Admin Oxycodone HCl 2.5 mg 01/15/24 03:08 01/15/24 03:10 Oxycodone 5mg Immediate Release Tablet PO 01/15/24 03:09 2.5 mg ONCE ONE Administration ORDERS Category Date Time Status CT cervical spine wo con Stat Cat Scan 01/15/24 03:[address] head/brain wo con Stat Cat Scan 01/15/24 03:06 Completed Forearm XR left 2 views [XR forearm LT 2V] Stat Exams 01/15/24 03:06 Completed Hand XR left minimum 3 views [XR hand LT min 3V] Stat Exams 01/15/24 03:06 Completed Wrist XR left minimum 3 views [XR wrist LT min 3V] Stat Exams 01/15/24 03:06 Completed Medical Decision Narrative: In summary, this 78-year-old female presents to the emergency department today with left hand and wrist pain after fall. On initial evaluation patient is hemodynamically stable, afebrile, scalp is normocephalic and atraumatic though patient reports striking the right side of her head. No tenderness of the C-spine, full range of motion, no paresthesias. Patient has swelling and tenderness over the left thenar eminence and wrist with limited range of motion, questionable deformity Limited exam secondary to swelling. There is obvious bruising. Neurovascularly intact. No abnormalities of the elbow or shoulder. Differential diagnosis includes but is not limited to fracture, dislocation, soft tissue injury, hematoma, since patient is on blood thinners I do up to consider the possibility of intracranial bleed, with her age I also cannot rule out cervical spine injury. Based on these concerns, I ordered x-rays, CT imaging. Patient received oral oxycodone for treatment. 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 See radiology read for final interpretation. CT head and cervical spine were personally interpreted and do not demonstrate acute traumatic injury on my personal interpretation. See radiology read for final interpretation. Due to patient's area of pain and tenderness, is possible patient has potential scaphoid injury. Patient was placed in removable thumb spica for support. She was referred to orthopedics for outpatient follow-up. Patient was given instructions on symptomatic management, follow up instructions, and return precautions for the emergency department. Patient indicated understanding and was discharged in stable condition. Critical Care Critical Care Time Critical Care Time: No
[2024-01-15 03:35] VITALS: BP 180/96; PULSE 58
[2024-01-15 04:40] VITALS: BP 164/72; PULSE 60; RESP 18; TEMP 36.6; O2SAT 98
== END 2024-01-15 04:42 | disposition home or self-care (01) ==
PROVIDERS: Emergency Provider Emergency Medicine; PCP Family Medicine
DX: M25.532 Pain in left wrist (principal); W01.198A Fall on same level from slipping, tripping and stumbling with subsequent striking against other object, initial encounter; Y93.89 Activity, other specified; Y92.9 Unspecified place or not applicable
CPT/HCPCS: 70450; 72125; 73090; 73110; 73130; 99284

== ENCOUNTER 2024-04-28 12:42 | Outpatient (CLI) | payer MEDICARE, OTHER, SELFPAY ==
--- NOTE | 2024-04-28 12:45 | XR_ITS ---
FINAL REPORT CLINICAL HISTORY: injured right sternoclavicular joint..fall in feb on ice FINDINGS: Right clavicle Two views were obtained. There is no fracture or dislocation. There is moderate glenohumeral joint degenerative change. There is mild AC joint degenerative change. There is narrowing of the acromiohumeral interval which may be seen with rotator cuff disease. The bones are osteopenic. No soft tissue abnormality is identified. IMPRESSION: No acute bony abnormality. Moderate degenerative changes. Suspect rotator cuff disease. Reviewed, Interpreted and Dictated by Calvin Rich MD Transcribed by Kavya Velazquez Authenticated and . [facility]
== END 2024-04-28 23:59 | disposition home or self-care (01) ==
LOC: RAD 12:43
PROVIDERS: PCP Internal Medicine Adolescent Medicine; Visit Provider Family Medicine
DX: M25.511 Pain in right shoulder (principal)
CPT/HCPCS: 73000